=== PATIENT | male | born 1930 | race Caucasian/White ===

== ENCOUNTER 2017-08-10 11:11 | Inpatient (IN) ==
[2017-08-10 12:17] LABS: Basophils % 0.4 % (0.0-0.8); Hematocrit 39.6 VOL% (42.0-52.0); Hemoglobin 13.4 GM/DL (14.0-18.0); Immature Granulocytes % 0.7 %; Immature Granulocytes Absolute 0.03 #; Lymphocytes # 0.8 10*3/uL (1.4-4.0); Lymphocytes % 17.4 % (21.2-54.2); Mean Corpuscular HGB Conc 33.8 GM/DL (32-36); Mean Corpuscular Hemoglobin 32 PG (27-34); Mean Corpuscular Volume 95.9 FL (87-102); Mean Platelet Volume 9.2 FL (9.6-12.0); Monocytes # 0.7 10*3/uL (0.11-0.8); Monocytes % 15.8 % (1.7-12.7); Neutrophils % 65.7 % (38.7-73.9); Platelet Count 252 T/CUMM (130-400); Red Blood Count 4.13 MC/CUMM (3.8-5.5); Red Cell Distribution Width 13.3 % (9.3-17.3); White Blood Count 4.5 T/CUMM (4-12)
[2017-08-10 12:39] LABS: Hypochromasia 2+; Lymphocytes 16 % (20-55); Platelet Estimate Adequate; Segmented Neutrophils 74 % (50-85); Total Cells Counted 100
[2017-08-10 12:45] LABS: Apearance,Urine CLEAR (Clear); Bilirubin,Urine Negative (Negative); Blood, Urine Negative (Negative); Glucose,Urine (UA) Negative (Negative); Ketones,Urine Negative (Negative); Mucus,Urine Occasional /LPF (Occasional); Nitrite,Urine Negative (Negative); Protein,Urine Negative; RBC,Urine 1 /HPF (0-4); Squamous Epithelial Cell,Urine Occasional /HPF (0-10); Urine Color Straw (Yellow); Urine Specific Gravity 1.006 (1.001-1.035); Urine Urobilinogen < 2.0 EU/DL (0.2-1.0)
[2017-08-10 12:46] LABS: Albumin 3.2 G/DL (3.4-5.0); Bilirubin,Total 0.4 MG/DL (0.2-1.0); Calcium 8.3 MG/DL (8.5-10.1); Osmolality,Calculated 271.2 MOS/KG (273-304); Potassium 3.4 MMOL/L (3.5-5.1); Total Protein 6.3 G/DL (6.4-8.3)
[2017-08-10] MEDS ORDERED: ACETAMINOPHEN 325 MG TABLET PO PRN (14:36)
[2017-08-10] MEDS: SODIUM CHLORIDE 0.9% 1,000 ML IV SCH (15:54)
[2017-08-10] MEDS ORDERED: cefTRIAXone 1,000 MG VIAL ONE (16:37)
[2017-08-10] MEDS: cefTRIAXone 1,000 MG in SYRINGE 1 EACH IV SCH (16:41)
[2017-08-10] MEDS ORDERED: TISSUE ADHESIVE 1 EACH APPLICATOR TOP ONE (16:49)
[2017-08-10] MEDS: AZITHROMYCIN INJ 500 MG in SODIUM CHLORIDE 0.9% 250 ML IV SCH (21:13)
[2017-08-10] MEDS: OSELTAMIVIR 30 MG CAPSULE PO SCH (21:13)
[2017-08-11 04:55] LABS: Basophils % 0.9 % (0.0-0.8); Eosinophils % 0.6 % (0.00-10.9); Hematocrit 34.4 VOL% (42.0-52.0); Hemoglobin 11.9 GM/DL (14.0-18.0); Immature Granulocytes % 0.9 %; Immature Granulocytes Absolute 0.03 #; Lymphocytes # 0.7 10*3/uL (1.4-4.0); Lymphocytes % 22.8 % (21.2-54.2); Mean Corpuscular HGB Conc 34.6 GM/DL (32-36); Mean Corpuscular Hemoglobin 33 PG (27-34); Mean Corpuscular Volume 94.8 FL (87-102); Mean Platelet Volume 9.6 FL (9.6-12.0); Monocytes # 0.7 10*3/uL (0.11-0.8); Monocytes % 20.7 % (1.7-12.7); Neutrophils # 1.8 10*3/uL (1.4-7.4); Neutrophils % 54.1 % (38.7-73.9); Platelet Count 229 T/CUMM (130-400); Red Blood Count 3.63 MC/CUMM (3.8-5.5); Red Cell Distribution Width 13.4 % (9.3-17.3); White Blood Count 3.2 T/CUMM (4-12)
[2017-08-11 05:21] LABS: Band Neutrophils 4 % (0-10); Giant Platelets Few; Hypochromasia 1+; Lymphocytes 19 % (20-55); Ovalocytes Slight; Platelet Estimate Adequate; Segmented Neutrophils 61 % (50-85); Total Cells Counted 100
[2017-08-11 05:25] LABS: Calcium 7.5 MG/DL (8.5-10.1); Osmolality,Calculated 277.7 MOS/KG (273-304); Potassium 3.3 MMOL/L (3.5-5.1)
[2017-08-11] MEDS: OSELTAMIVIR 30 MG CAPSULE PO SCH (08:56)
[2017-08-11] MEDS ORDERED: POTASSIUM CHLORIDE 20 MEQ TABLET PO PRN (10:31)
[2017-08-11] MEDS ORDERED: POTASSIUM CHLORIDE 20 MEQ TABLET PO ONE (10:38)
[2017-08-11] MEDS: cefTRIAXone 1,000 MG in SYRINGE 1 EACH IV SCH (13:44)
[2017-08-11] MEDS: SODIUM CHLORIDE 0.9% 1,000 ML IV SCH (13:50)
[2017-08-11] MEDS ORDERED: ALBUTEROL/IPRATROPIUM 3 ML NEB RESP TX PRN (13:56)
[2017-08-11] MEDS: BUDESONIDE/FORMOTEROL 80-4.5 INHALER 6.9 GM INH SCH ×2 (14:36→21:03)
[2017-08-11] MEDS: OSELTAMIVIR 75 MG CAPSULE PO SCH (21:02)
[2017-08-11] MEDS: GABAPENTIN 300 MG CAPSULE PO SCH (21:02)
[2017-08-11] MEDS: TEMAZEPAM 15 MG CAPSULE PO SCH (21:02)
[2017-08-11] MEDS: AZITHROMYCIN INJ 500 MG in SODIUM CHLORIDE 0.9% 250 ML IV SCH (21:03)
[2017-08-12 05:10] LABS: Basophils % 0.7 % (0.0-0.8); Hematocrit 34.3 VOL% (42.0-52.0); Hemoglobin 11.9 GM/DL (14.0-18.0); Immature Granulocytes Absolute 0.03 #; Lymphocytes # 0.9 10*3/uL (1.4-4.0); Lymphocytes % 29.9 % (21.2-54.2); Mean Corpuscular HGB Conc 34.7 GM/DL (32-36); Mean Corpuscular Hemoglobin 33 PG (27-34); Mean Corpuscular Volume 94.8 FL (87-102); Monocytes # 0.6 10*3/uL (0.11-0.8); Monocytes % 18.4 % (1.7-12.7); Neutrophils # 1.5 10*3/uL (1.4-7.4); Platelet Count 234 T/CUMM (130-400); Red Blood Count 3.62 MC/CUMM (3.8-5.5); Red Cell Distribution Width 13.6 % (9.3-17.3)
[2017-08-12 05:59] LABS: Band Neutrophils 3 % (0-10); Eosinophils 1 % (0-10); Hypochromasia 1+; Lymphocytes 30 % (20-55); Platelet Estimate Normal; Segmented Neutrophils 52 % (50-85); Total Cells Counted 100
[2017-08-12 06:09] LABS: Calcium 7.8 MG/DL (8.5-10.1); Magnesium 1.8 MG/DL (1.8-2.4); Osmolality,Calculated 278.5 MOS/KG (273-304); Potassium 3.7 MMOL/L (3.5-5.1)
[2017-08-12] MEDS: OSELTAMIVIR 75 MG CAPSULE PO SCH ×2 (09:23→21:39)
[2017-08-12] MEDS: BUDESONIDE/FORMOTEROL 80-4.5 INHALER 6.9 GM INH SCH ×2 (09:24→21:39)
[2017-08-12] MEDS: cefTRIAXone 1,000 MG in SYRINGE 1 EACH IV SCH (14:28)
[2017-08-12] MEDS: TEMAZEPAM 15 MG CAPSULE PO SCH (21:39)
[2017-08-12] MEDS: GABAPENTIN 300 MG CAPSULE PO SCH (21:39)
[2017-08-12] MEDS: AZITHROMYCIN INJ 500 MG in SODIUM CHLORIDE 0.9% 250 ML IV SCH (21:40)
[2017-08-13] MEDS: BUDESONIDE/FORMOTEROL 80-4.5 INHALER 6.9 GM INH SCH (09:06)
[2017-08-13] MEDS: OSELTAMIVIR 75 MG CAPSULE PO SCH (09:06)
[2017-08-13 12:11] VITALS: BP 109/60
== END 2017-08-13 14:02 | disposition home or self-care (01) | DRG 682 ==
LOC: EDUNIT# → N.ED 11:11 → N.EDINP 14:11 → N.TELEN 17:40
PROVIDERS: ADMIT Internal Medicine; ATTEND Internal Medicine

== ENCOUNTER 2017-08-18 08:53 | Inpatient (IN) ==
[2017-08-18 10:46] LABS: Basophils # 0.1 10*3/uL (0.0-0.2); Basophils % 0.6 % (0.0-0.8); Eosinophils # 0.1 10*3/uL (0.0-0.87); Eosinophils % 0.6 % (0.00-10.9); Hematocrit 37.9 VOL% (42.0-52.0); Hemoglobin 12.9 GM/DL (14.0-18.0); Immature Granulocytes % 1.3 %; Lymphocytes # 0.8 10*3/uL (1.4-4.0); Lymphocytes % 9.9 % (21.2-54.2); Mean Corpuscular Hemoglobin 33 PG (27-34); Mean Corpuscular Volume 95.9 FL (87-102); Mean Platelet Volume 9.4 FL (9.6-12.0); Monocytes # 0.6 10*3/uL (0.11-0.8); Neutrophils # 6.3 10*3/uL (1.4-7.4); Neutrophils % 79.6 % (38.7-73.9); Platelet Count 494 T/CUMM (130-400); Red Blood Count 3.95 MC/CUMM (3.8-5.5); Red Cell Distribution Width 13.8 % (9.3-17.3); White Blood Count 7.9 T/CUMM (4-12)
[2017-08-18] MEDS: DEXTROSE 5% NACL 0.45% 1,000 ML IV SCH (10:52)
[2017-08-18 11:03] LABS: Albumin 3.5 G/DL (3.4-5.0); Bilirubin,Total 0.5 MG/DL (0.2-1.0); Calcium 9.3 MG/DL (8.5-10.1); Osmolality,Calculated 275.8 MOS/KG (273-304); Potassium 4.2 MMOL/L (3.5-5.1); Total Protein 6.8 G/DL (6.4-8.3)
[2017-08-18] MEDS: BUDESONIDE/FORMOTEROL 80-4.5 INHALER 6.9 GM INH SCH ×2 (16:55→21:21)
[2017-08-18] MEDS ORDERED: ALBUTEROL/IPRATROPIUM 3 ML NEB RESP TX PRN (17:06)
[2017-08-18] MEDS ORDERED: FAMOTIDINE 20 MG TABLET PO ONE (18:50)
[2017-08-18] MEDS ORDERED: ALBUTEROL/IPRATROPIUM 3 ML NEB RESP TX ONE (18:52)
[2017-08-18] MEDS: GABAPENTIN 300 MG CAPSULE PO SCH (21:20)
[2017-08-18] MEDS: METOPROLOL TARTRATE 25 MG TABLET PO SCH (21:20)
[2017-08-18] MEDS: hydroCHLOROthiazide 25 MG TABLET PO SCH (21:21)
[2017-08-18] MEDS: TEMAZEPAM 15 MG CAPSULE PO SCH (21:21)
[2017-08-18] MEDS: hydrALAZINE 25 MG TABLET PO SCH (21:21)
[2017-08-19] MEDS: DEXTROSE 5% NACL 0.45% 1,000 ML IV SCH ×3 (04:47→17:12)
[2017-08-19] MEDS ORDERED: LEVOFLOXACIN INJ 500 MG in PREMIX 1 EACH IV ONE (07:00)
[2017-08-19] MEDS: hydrALAZINE 25 MG TABLET PO SCH ×2 (08:56→21:06)
[2017-08-19] MEDS: METOPROLOL TARTRATE 25 MG TABLET PO SCH ×2 (08:56→21:05)
[2017-08-19] MEDS: BUDESONIDE/FORMOTEROL 80-4.5 INHALER 6.9 GM INH SCH ×2 (08:57→21:05)
[2017-08-19] MEDS: hydroCHLOROthiazide 25 MG TABLET PO SCH ×2 (08:57→21:05)
[2017-08-19] MEDS ORDERED: FAMOTIDINE 20 MG TABLET PO ONE (09:00)
[2017-08-19] MEDS ORDERED: FAMOTIDINE 20 MG TABLET ONE (09:02)
[2017-08-19] MEDS ORDERED: NEOMYCIN/POLYMYXIN IRRIG SOLN 1 ML AMP BLADDERIRR ONE (09:54)
[2017-08-19] MEDS ORDERED: fentaNYL 100 MCG/2 ML VIAL ONE (11:07)
[2017-08-19] MEDS ORDERED: ONDANSETRON 4 MG/2 ML VIAL ONE (11:07)
[2017-08-19] MEDS ORDERED: SEVOFLURANE 1 UNIT/15 MINUTE INH ONE (11:07)
[2017-08-19] MEDS ORDERED: PROPOFOL 200 MG/20 ML VIAL IV ONE (11:07)
[2017-08-19] MEDS ORDERED: LACTATED RINGERS 1,000 ML IV ONE (11:08)
[2017-08-19] MEDS ORDERED: HYDROmorphone 2 MG/1 ML VIAL IV PRN (11:16)
[2017-08-19] MEDS ORDERED: ONDANSETRON 4 MG/2 ML VIAL IV PRN (11:16)
[2017-08-19] MEDS: POLYETHYLENE GLYCOL POWDER 17 GM PACK PO SCH (13:16)
[2017-08-19] MEDS: GABAPENTIN 300 MG CAPSULE PO SCH (21:03)
[2017-08-19] MEDS: TEMAZEPAM 15 MG CAPSULE PO SCH (21:03)
[2017-08-20 06:38] LABS: Basophils # 0.1 10*3/uL (0.0-0.2); Basophils % 0.7 % (0.0-0.8); Eosinophils # 0.2 10*3/uL (0.0-0.87); Eosinophils % 2.3 % (0.00-10.9); Hematocrit 30.9 VOL% (42.0-52.0); Immature Granulocytes Absolute 0.07 #; Lymphocytes % 13.9 % (21.2-54.2); Mean Corpuscular Hemoglobin 32 PG (27-34); Mean Corpuscular Volume 97.8 FL (87-102); Mean Platelet Volume 9.5 FL (9.6-12.0); Monocytes # 0.9 10*3/uL (0.11-0.8); Monocytes % 12.7 % (1.7-12.7); Neutrophils # 4.7 10*3/uL (1.4-7.4); Neutrophils % 69.4 % (38.7-73.9); Red Blood Count 3.16 MC/CUMM (3.8-5.5); Red Cell Distribution Width 13.9 % (9.3-17.3); White Blood Count 6.8 T/CUMM (4-12)
[2017-08-20 06:51] LABS: Hemoglobin 10.2 GM/DL (14.0-18.0); Platelet Count 382 T/CUMM (130-400)
[2017-08-20 06:56] LABS: Calcium 8.4 MG/DL (8.5-10.1); Osmolality,Calculated 278.4 MOS/KG (273-304); Potassium 4.2 MMOL/L (3.5-5.1)
[2017-08-20 08:30] VITALS: BP 108/71
[2017-08-20] MEDS: POLYETHYLENE GLYCOL POWDER 17 GM PACK PO SCH (09:24)
[2017-08-20] MEDS: BUDESONIDE/FORMOTEROL 80-4.5 INHALER 6.9 GM INH SCH (09:25)
[2017-08-20] MEDS: hydroCHLOROthiazide 25 MG TABLET PO SCH (09:25)
[2017-08-20] MEDS: METOPROLOL TARTRATE 25 MG TABLET PO SCH (09:25)
[2017-08-20] MEDS: hydrALAZINE 25 MG TABLET PO SCH (09:25)
== END 2017-08-20 10:35 | disposition home or self-care (01) | DRG 669 ==
LOC: N.5E 09:13
PROVIDERS: ADMIT Urology; ATTEND Urology

== ENCOUNTER 2018-02-20 10:59 | Inpatient (IN) ==
[2018-02-20 12:26] LABS: Basophils # 0.1 10*3/uL (0.0-0.2); Basophils % 0.7 % (0.0-0.8); Eosinophils # 0.2 10*3/uL (0.0-0.87); Eosinophils % 2.3 % (0.00-10.9); Hematocrit 41.3 VOL% (42.0-52.0); Hemoglobin 13.9 GM/DL (14.0-18.0); Immature Granulocytes % 0.6 %; Immature Granulocytes Absolute 0.05 #; Lymphocytes % 11.5 % (21.2-54.2); Mean Corpuscular HGB Conc 33.7 GM/DL (32-36); Mean Corpuscular Hemoglobin 32 PG (27-34); Mean Corpuscular Volume 94.5 FL (87-102); Mean Platelet Volume 9.6 FL (9.6-12.0); Monocytes # 0.8 10*3/uL (0.11-0.8); Monocytes % 9.8 % (1.7-12.7); Neutrophils # 6.3 10*3/uL (1.4-7.4); Neutrophils % 75.1 % (38.7-73.9); Platelet Count 340 T/CUMM (130-400); Red Blood Count 4.37 MC/CUMM (3.8-5.5); Red Cell Distribution Width 14.1 % (9.3-17.3); White Blood Count 8.4 T/CUMM (4-12)
[2018-02-20 12:38] LABS: PT Patient Result 10.4 SECS; Partial Thromboplastin Time 28.8 SECS (0-40)
[2018-02-20] MEDS ORDERED: MORPHINE 4 MG/1 ML VIAL IV STA (12:49)
[2018-02-20 13:01] LABS: Calcium 8.6 MG/DL (8.5-10.1); Osmolality,Calculated 276.8 MOS/KG (273-304); Potassium 3.3 MMOL/L (3.5-5.1)
[2018-02-20 13:19] LABS: Apearance,Urine CLOUDY (Clear); Bilirubin,Urine Negative (Negative); Glucose,Urine (UA) 50 mg/dL (Negative); Ketones,Urine Negative (Negative); Nitrite,Urine Negative (Negative); Protein,Urine >=500 MG/DL; Urine Specific Gravity 1.027 (1.001-1.035); Urine Urobilinogen < 2.0 EU/DL (0.2-1.0)
[2018-02-20 13:45] LABS: Blood, Urine Large mg/dL (Negative); Urine Color Red (Yellow)
[2018-02-20 13:46] LABS: RBC,Urine TNTC /HPF (0-4); WBC,Urine 2 /HPF (0-6)
[2018-02-20] MEDS ORDERED: POTASSIUM CHLORIDE 20 MEQ TABLET PO STA (13:52)
[2018-02-20] MEDS ORDERED: MAGNESIUM OXIDE 400 MG TABLET PO ONE (13:53)
[2018-02-20] MEDS ORDERED: PROMETHAZINE 25 MG/1 ML VIAL IM PRN (16:01)
[2018-02-20 16:57] LABS: Hematocrit 41.2 VOL% (42.0-52.0)
[2018-02-20] MEDS: HYDROmorphone 2 MG/1 ML VIAL IV PRN ×3 (17:07→23:57)
[2018-02-20 19:56] LABS: Hematocrit 38.9 VOL% (42.0-52.0); Hemoglobin 13.2 GM/DL (14.0-18.0)
[2018-02-20] MEDS: ATORVASTATIN 20 MG TABLET PO SCH (20:44)
[2018-02-20] MEDS: METOPROLOL TARTRATE 25 MG TABLET PO SCH (20:44)
[2018-02-20] MEDS: GABAPENTIN 300 MG CAPSULE PO SCH (20:45)
[2018-02-20] MEDS: hydroCHLOROthiazide 25 MG TABLET PO SCH (22:30)
[2018-02-20] MEDS: TEMAZEPAM 15 MG CAPSULE PO SCH (22:30)
[2018-02-20] MEDS: BUDESONIDE/FORMOTEROL 80-4.5 INHALER 6.9 GM INH SCH (22:30)
[2018-02-21 00:39] LABS: Hematocrit 38.8 VOL% (42.0-52.0); Hemoglobin 12.9 GM/DL (14.0-18.0)
[2018-02-21] MEDS: SOTALOL 80 MG TABLET PO SCH ×2 (02:04→09:17)
[2018-02-21 05:51] LABS: Basophils # 0.1 10*3/uL (0.0-0.2); Basophils % 0.3 % (0.0-0.8); Hematocrit 37.4 VOL% (42.0-52.0); Hemoglobin 12.9 GM/DL (14.0-18.0); Immature Granulocytes % 2.2 %; Lymphocytes # 0.8 10*3/uL (1.4-4.0); Lymphocytes % 2.1 % (21.2-54.2); Mean Corpuscular HGB Conc 34.5 GM/DL (32-36); Mean Corpuscular Hemoglobin 33 PG (27-34); Mean Corpuscular Volume 94.2 FL (87-102); Mean Platelet Volume 10.1 FL (9.6-12.0); Monocytes # 2.2 10*3/uL (0.11-0.8); Monocytes % 6.1 % (1.7-12.7); Neutrophils # 32.5 10*3/uL (1.4-7.4); Neutrophils % 89.3 % (38.7-73.9); Platelet Count 359 T/CUMM (130-400); Red Blood Count 3.97 MC/CUMM (3.8-5.5); Red Cell Distribution Width 14.6 % (9.3-17.3); White Blood Count 36.4 T/CUMM (4-12)
[2018-02-21 05:53] LABS: Hematocrit 38.4 VOL% (42.0-52.0); Hemoglobin 12.8 GM/DL (14.0-18.0)
[2018-02-21 06:21] LABS: Calcium 8.7 MG/DL (8.5-10.1); Potassium 5.2 MMOL/L (3.5-5.1)
[2018-02-21 08:12] LABS: Hematocrit 37.9 VOL% (42.0-52.0); Hemoglobin 12.7 GM/DL (14.0-18.0)
[2018-02-21] MEDS ORDERED: ASPIRIN EC 81 MG TABLET PO SCH (09:00)
[2018-02-21] MEDS ORDERED: CLOPIDOGREL 75 MG TABLET PO SCH (09:00)
[2018-02-21 09:02] LABS: Basophils # 0.1 10*3/uL (0.0-0.2); Basophils % 0.2 % (0.0-0.8); Hematocrit 38.1 VOL% (42.0-52.0); Hemoglobin 12.6 GM/DL (14.0-18.0); Immature Granulocytes % 2.2 %; Immature Granulocytes Absolute 0.89 #; Lymphocytes # 0.8 10*3/uL (1.4-4.0); Lymphocytes % 2.1 % (21.2-54.2); Mean Corpuscular HGB Conc 33.1 GM/DL (32-36); Mean Corpuscular Hemoglobin 32 PG (27-34); Mean Corpuscular Volume 97.4 FL (87-102); Mean Platelet Volume 10.2 FL (9.6-12.0); Monocytes # 1.9 10*3/uL (0.11-0.8); Monocytes % 4.7 % (1.7-12.7); Neutrophils % 90.8 % (38.7-73.9); Platelet Count 329 T/CUMM (130-400); Red Blood Count 3.91 MC/CUMM (3.8-5.5); Red Cell Distribution Width 14.6 % (9.3-17.3); White Blood Count 39.7 T/CUMM (4-12)
[2018-02-21] MEDS: HYDROmorphone 2 MG/1 ML VIAL IV PRN (09:20)
[2018-02-21 09:24] LABS: Lactic Acid 2.5 MMOL/L (0.4-2.0)
[2018-02-21 09:38] LABS: Troponin I 0.108 NG/ML (0.00-0.045)
[2018-02-21] MEDS: SODIUM CHLORIDE 0.9% 1,000 ML IV SCH ×4 (09:38→21:42)
[2018-02-21 09:54] LABS: Albumin 2.7 G/DL (3.4-5.0); Bilirubin,Total 0.9 MG/DL (0.2-1.0); Calcium 8.5 MG/DL (8.5-10.1); Potassium 5.5 MMOL/L (3.5-5.1); Total Protein 6.6 G/DL (6.4-8.3)
[2018-02-21] MEDS: METOPROLOL TARTRATE 25 MG TABLET PO SCH ×2 (09:55→21:32)
[2018-02-21 10:31] LABS: ABG Base Excess -5.2 MMOL/L (-2.5-2.5); ABG HCO3 20.1 MMOL/L (20-26); ABG Oxygen Saturation 96.3 % (95-100); ABG PCO2 48.9 MM HG (35-48); ABG PH 7.263 (7.35-7.45); ABG PO2 94.6 MM HG (80-95); ABG TCO2 20.1 MMOL/L (23-27)
[2018-02-21] MEDS: hydroCHLOROthiazide 25 MG TABLET PO SCH (10:31)
[2018-02-21] MEDS: MEROPENEM 500 MG in SODIUM CHLORIDE 0.9% 100 ML IV SCH ×2 (10:37→21:38)
[2018-02-21 11:57] LABS: Band Neutrophils 30 % (0-10); Lymphocytes 1 % (20-55); Segmented Neutrophils 66 % (50-85); Total Cells Counted 100
[2018-02-21 11:58] LABS: Microcytosis Slight
[2018-02-21 11:59] LABS: Platelet Estimate Normal; Schistocytes Slight
[2018-02-21] MEDS: ASPIRIN EC 81 MG TABLET PO SCH ×2 (12:16→13:59)
[2018-02-21] MEDS: CETIRIZINE 10 MG TABLET PO SCH ×2 (12:16→13:59)
[2018-02-21] MEDS: CLOPIDOGREL 75 MG TABLET PO SCH ×2 (12:16→13:59)
[2018-02-21] MEDS: ASCORBIC ACID 500 MG TABLET PO SCH ×2 (12:16→13:58)
[2018-02-21 12:23] LABS: Hemoglobin 11.3 GM/DL (14.0-18.0)
[2018-02-21] MEDS ORDERED: NOREPINEPHRINE 4 MG/4 ML VIAL IV ONE (12:35)
[2018-02-21 12:38] LABS: Anisocytosis Slight; Band Neutrophils 21 % (0-10); Lymphocytes 6 % (20-55); Platelet Estimate Normal; Polychromasia Slight; Segmented Neutrophils 65 % (50-85); Stomatocytes Slight; Total Cells Counted 100
[2018-02-21] MEDS ORDERED: SODIUM CHLORIDE 0.9% 1,000 ML IV ONE (12:39)
[2018-02-21] MEDS: NOREPINEPHRINE 8 MG in SODIUM CHLORIDE 0.9% 242 ML IV PRN ×3 (12:45→21:28)
[2018-02-21] MEDS: BUDESONIDE/FORMOTEROL 80-4.5 INHALER 6.9 GM INH SCH ×3 (13:30→21:33)
[2018-02-21 13:32] LABS: Apearance,Urine CLEAR (Clear); Bilirubin,Urine Negative (Negative); Blood, Urine Large mg/dL (Negative); Glucose,Urine (UA) Negative (Negative); Ketones,Urine Negative (Negative); Nitrite,Urine Negative (Negative); Protein,Urine 30 MG/DL; RBC,Urine <1 /HPF (0-4); Urine Color PINK (Yellow); Urine Urobilinogen < 2.0 EU/DL (0.2-1.0)
[2018-02-21 16:35] LABS: Hematocrit 33.5 VOL% (42.0-52.0); Hemoglobin 10.7 GM/DL (14.0-18.0)
[2018-02-21 17:15] LABS: ABG Base Excess -9.2 MMOL/L (-2.5-2.5); ABG HCO3 17.1 MMOL/L (20-26); ABG Oxygen Saturation 97.5 % (95-100); ABG TCO2 22.2 MMOL/L (23-27)
[2018-02-21 17:17] LABS: ABG PCO2 81.3 MM HG (35-48)
[2018-02-21] MEDS ORDERED: SODIUM BICARBONATE 50 MEQ/50 ML SYRINGE IV ONE ×3 (17:20→19:02)
[2018-02-21] MEDS: PROPOFOL 1,000 MG/100 ML BOTTLE IV SCH (17:28)
[2018-02-21] MEDS: CLINDAMYCIN INJ 600 MG in PREMIX 1 EACH IV SCH (17:30)
[2018-02-21] MEDS: methylPREDNISolone SOD SUC 40 MG/1 ML VIAL IV SCH ×2 (17:37→23:57)
[2018-02-21] MEDS ORDERED: PHENYLEPHRINE DRIP 40 MG/250 ML PREMIX IV ONE (18:05)
[2018-02-21] MEDS: PHENYLEPHRINE DRIP 40 MG/250 ML PREMIX IV PRN ×3 (18:12→22:09)
[2018-02-21] MEDS: PANTOPRAZOLE 40 MG VIAL IV SCH (18:32)
[2018-02-21 18:35] LABS: ABG Base Excess -8.8 MMOL/L (-2.5-2.5); ABG HCO3 17.3 MMOL/L (20-26); ABG Oxygen Saturation 99.5 % (95-100); ABG PCO2 60.2 MM HG (35-48); ABG TCO2 19.7 MMOL/L (23-27)
[2018-02-21 18:38] LABS: ABG PH 7.144 (7.35-7.45)
[2018-02-21] MEDS ORDERED: MORPHINE 4 MG/1 ML VIAL IV PRN (19:24)
[2018-02-21] MEDS: ALBUTEROL/IPRATROPIUM 3 ML NEB RESP TX SCH (19:45)
[2018-02-21] MEDS: DOPamine 800 MG/250 ML PREMIX IV PRN (20:00)
[2018-02-21 20:24] LABS: Hematocrit 31.7 VOL% (42.0-52.0)
[2018-02-21] MEDS: TEMAZEPAM 15 MG CAPSULE PO SCH (21:33)
[2018-02-21] MEDS: ATORVASTATIN 20 MG TABLET PO SCH (21:38)
[2018-02-21] MEDS: GABAPENTIN 300 MG CAPSULE PO SCH (21:38)
[2018-02-21] MEDS: MIDAZOLAM 100 MG in SODIUM CHLORIDE 0.9% 80 ML IV PRN (23:41)
[2018-02-22] MEDS: ALBUTEROL/IPRATROPIUM 3 ML NEB RESP TX SCH ×4 (00:46→19:07)
[2018-02-22 00:59] LABS: Hematocrit 32.7 VOL% (42.0-52.0); Hemoglobin 10.6 GM/DL (14.0-18.0)
[2018-02-22] MEDS: CLINDAMYCIN INJ 600 MG in PREMIX 1 EACH IV SCH ×3 (01:13→17:04)
[2018-02-22] MEDS: NOREPINEPHRINE 8 MG in SODIUM CHLORIDE 0.9% 242 ML IV PRN ×2 (01:13→04:09)
[2018-02-22] MEDS: PHENYLEPHRINE DRIP 40 MG/250 ML PREMIX IV PRN ×3 (02:06→05:48)
[2018-02-22] MEDS: SODIUM CHLORIDE 0.9% 1,000 ML IV SCH (02:31)
[2018-02-22 03:27] LABS: ABG Base Excess -9.8 MMOL/L (-2.5-2.5); ABG HCO3 18.3 MMOL/L (20-26); ABG Oxygen Saturation 98.1 % (95-100); ABG PCO2 50.4 MM HG (35-48); ABG PO2 134.9 MM HG (80-95); ABG TCO2 19.9 MMOL/L (23-27); Allen Test Positive; Pt O2 Delivery Device Ventilator
[2018-02-22 03:30] LABS: ABG PH 7.178 (7.35-7.45)
[2018-02-22 04:04] LABS: Osmolality,Calculated 295.1 MOS/KG (273-304); Potassium 5.2 MMOL/L (3.5-5.1)
[2018-02-22 04:07] LABS: Lactic Acid 4.5 MMOL/L (0.4-2.0)
[2018-02-22] MEDS ORDERED: SODIUM BICARBONATE 50 MEQ/50 ML SYRINGE IV ONE (04:07)
[2018-02-22 04:48] LABS: Basophils # 0.1 10*3/uL (0.0-0.2); Basophils % 0.1 % (0.0-0.8); Hematocrit 34.3 VOL% (42.0-52.0); Hemoglobin 10.6 GM/DL (14.0-18.0); Immature Granulocytes % 6.8 %; Immature Granulocytes Absolute 2.96 #; Lymphocytes # 1.4 10*3/uL (1.4-4.0); Lymphocytes % 3.1 % (21.2-54.2); Mean Corpuscular HGB Conc 30.9 GM/DL (32-36); Mean Corpuscular Hemoglobin 33 PG (27-34); Mean Corpuscular Volume 106.2 FL (87-102); Mean Platelet Volume 11.3 FL (9.6-12.0); Monocytes # 3.1 10*3/uL (0.11-0.8); Monocytes % 7.2 % (1.7-12.7); NRBC # 0.05 10*3/uL; Neutrophils # 35.8 10*3/uL (1.4-7.4); Neutrophils % 82.8 % (38.7-73.9); Platelet Count 196 T/CUMM (130-400); Red Blood Count 3.23 MC/CUMM (3.8-5.5); Red Cell Distribution Width 15.1 % (9.3-17.3)
[2018-02-22 04:52] LABS: White Blood Count 43.3 T/CUMM (4-12)
[2018-02-22] MEDS: DOPamine 800 MG/250 ML PREMIX IV PRN (05:23)
[2018-02-22] MEDS: methylPREDNISolone SOD SUC 40 MG/1 ML VIAL IV SCH ×4 (05:48→22:14)
[2018-02-22 06:09] LABS: Band Neutrophils 13 % (0-10); Hypochromasia 1+; Lymphocytes 3 % (20-55); Microcytosis Slight; Myelocytes 2 %; Platelet Estimate Adequate; Segmented Neutrophils 75 % (50-85); Total Cells Counted 100
[2018-02-22] MEDS ORDERED: SODIUM BICARB INJ 100 MEQ in DEXTROSE 5% 900 ML IV SCH (08:00)
[2018-02-22] MEDS: MEROPENEM 500 MG in SODIUM CHLORIDE 0.9% 100 ML IV SCH ×2 (08:51→21:40)
[2018-02-22] MEDS: PANTOPRAZOLE 40 MG VIAL IV SCH (08:59)
[2018-02-22] MEDS: ASCORBIC ACID 500 MG TABLET PO SCH (09:12)
[2018-02-22] MEDS: CETIRIZINE 10 MG TABLET PO SCH (09:13)
[2018-02-22] MEDS ORDERED: LEVOFLOXACIN INJ 750 MG in PREMIX 1 EACH IV SCH (10:00)
[2018-02-22] MEDS: ASPIRIN EC 81 MG TABLET PO SCH ×2 (10:00→14:25)
[2018-02-22] MEDS: METOPROLOL TARTRATE 25 MG TABLET PO SCH ×2 (10:01→11:58)
[2018-02-22] MEDS: BUDESONIDE/FORMOTEROL 80-4.5 INHALER 6.9 GM INH SCH (10:01)
[2018-02-22] MEDS: CLOPIDOGREL 75 MG TABLET PO SCH (10:01)
[2018-02-22] MEDS: SODIUM BICARB INJ 150 MEQ in DEXTROSE 5% 850 ML IV SCH ×2 (10:16→20:00)
[2018-02-22] MEDS: PHENYLEPHRINE INJ 160 MG in SODIUM CHLORIDE 0.9% 234 ML IV PRN ×2 (10:18→21:00)
[2018-02-22] MEDS: NOREPINEPHRINE 16 MG in SODIUM CHLORIDE 0.9% 234 ML IV PRN ×2 (10:18→23:09)
[2018-02-22 12:05] LABS: Albumin 1.9 G/DL (3.4-5.0); Bilirubin,Direct 0.18 MG/DL (0.0-0.20); Bilirubin,Indirect 0.2 MG/DL (0.0-1.0); Bilirubin,Total 0.4 MG/DL (0.2-1.0); Total Protein 4.9 G/DL (6.4-8.3)
[2018-02-22] MEDS ORDERED: GLUCAGON 1 MG VIAL IM PRN (14:21)
[2018-02-22] MEDS ORDERED: DEXTROSE 50% 25 GM/50 ML VIAL IV PRN (14:21)
[2018-02-22] MEDS ORDERED: NOREPINEPHRINE 4 MG/4 ML VIAL IV ONE (16:17)
[2018-02-22] MEDS: INSULIN REGULAR 100 UNIT/ML SUBCUT SCH (18:28)
[2018-02-22] MEDS: GABAPENTIN 300 MG CAPSULE PO SCH (21:40)
[2018-02-22] MEDS: TEMAZEPAM 15 MG CAPSULE PO SCH (21:40)
[2018-02-22] MEDS: ATORVASTATIN 20 MG TABLET PO SCH (21:40)
[2018-02-23] MEDS: INSULIN REGULAR 100 UNIT/ML SUBCUT SCH ×4 (00:42→18:25)
[2018-02-23] MEDS: CLINDAMYCIN INJ 600 MG in PREMIX 1 EACH IV SCH (00:43)
[2018-02-23] MEDS: ALBUTEROL/IPRATROPIUM 3 ML NEB RESP TX SCH ×4 (01:17→19:11)
[2018-02-23] MEDS: DOPamine 800 MG/250 ML PREMIX IV PRN (02:03)
[2018-02-23 04:37] LABS: ABG HCO3 25.3 MMOL/L (20-26); ABG Oxygen Saturation 98.2 % (95-100); ABG PCO2 56.3 MM HG (35-48); Allen Test Positive; Pt O2 Delivery Device Ventilator
[2018-02-23 04:43] LABS: Hematocrit 27.4 VOL% (42.0-52.0); Immature Granulocytes % 2.4 %; Immature Granulocytes Absolute 1.33 #; Lymphocytes # 0.5 10*3/uL (1.4-4.0); Lymphocytes % 0.9 % (21.2-54.2); Mean Corpuscular HGB Conc 32.8 GM/DL (32-36); Mean Corpuscular Hemoglobin 33 PG (27-34); Mean Corpuscular Volume 100.7 FL (87-102); Mean Platelet Volume 11.3 FL (9.6-12.0); Monocytes # 1.9 10*3/uL (0.11-0.8); Monocytes % 3.4 % (1.7-12.7); NRBC # 0.02 10*3/uL; Neutrophils # 50.9 10*3/uL (1.4-7.4); Neutrophils % 93.3 % (38.7-73.9); Platelet Count 110 T/CUMM (130-400); Red Blood Count 2.72 MC/CUMM (3.8-5.5); Red Cell Distribution Width 16.1 % (9.3-17.3)
[2018-02-23 04:52] LABS: White Blood Count 54.7 T/CUMM (4-12)
[2018-02-23 05:07] LABS: Calcium 6.4 MG/DL (8.5-10.1); Osmolality,Calculated 298.3 MOS/KG (273-304); Potassium 5.5 MMOL/L (3.5-5.1)
[2018-02-23 05:11] LABS: Prealbumin 8.2 MG/DL (20-40)
[2018-02-23 05:23] LABS: Band Neutrophils 16 % (0-10); Lymphocytes 1 % (20-55); Myelocytes 1 %; Segmented Neutrophils 78 % (50-85); Total Cells Counted 100
[2018-02-23 05:24] LABS: Hypochromasia 1+; Microcytosis Slight; Platelet Estimate Decreased
[2018-02-23] MEDS: MIDAZOLAM 100 MG in SODIUM CHLORIDE 0.9% 80 ML IV PRN (05:25)
[2018-02-23] MEDS: NOREPINEPHRINE 16 MG in SODIUM CHLORIDE 0.9% 234 ML IV PRN ×3 (05:28→18:39)
[2018-02-23] MEDS: SODIUM BICARB INJ 150 MEQ in DEXTROSE 5% 850 ML IV SCH ×2 (05:52→16:13)
[2018-02-23] MEDS: methylPREDNISolone SOD SUC 40 MG/1 ML VIAL IV SCH ×4 (05:52→22:34)
[2018-02-23] MEDS ORDERED: PIPERACILLIN/TAZOBACTAM 2,250 MG in SODIUM CHLORIDE 0.9% 100 ML IV SCH (07:30)
[2018-02-23 07:47] LABS: Allen Test Positive; Pt O2 Delivery Device Ventilator
[2018-02-23 07:48] LABS: ABG HCO3 22.7 MMOL/L (20-26); ABG Oxygen Saturation 96.5 % (95-100); ABG PCO2 52.6 MM HG (35-48); ABG PH 7.285 (7.35-7.45); ABG PO2 84.9 MM HG (80-95); ABG TCO2 23.5 MMOL/L (23-27)
[2018-02-23] MEDS: PHENYLEPHRINE INJ 160 MG in SODIUM CHLORIDE 0.9% 234 ML IV PRN ×2 (08:35→14:57)
[2018-02-23] MEDS ORDERED: MAGNESIUM SULF RIDER 4 GM in PREMIX 1 EACH IV PRN (08:41)
[2018-02-23] MEDS ORDERED: MAGNESIUM SULF RIDER 2 GM in PREMIX 1 EACH IV PRN (08:41)
[2018-02-23] MEDS: MEROPENEM 500 MG in SODIUM CHLORIDE 0.9% 100 ML IV SCH (08:54)
[2018-02-23] MEDS: PANTOPRAZOLE 40 MG VIAL IV SCH (09:00)
[2018-02-23] MEDS: ASCORBIC ACID 500 MG TABLET PO SCH (09:02)
[2018-02-23] MEDS: ASPIRIN EC 81 MG TABLET PO SCH (09:02)
[2018-02-23] MEDS: CLOPIDOGREL 75 MG TABLET PO SCH (09:02)
[2018-02-23] MEDS: CETIRIZINE 10 MG TABLET PO SCH (09:02)
[2018-02-23] MEDS: MEROPENEM 1,000 MG in SODIUM CHLORIDE 0.9% 100 ML IV SCH ×2 (09:12→21:35)
[2018-02-23] MEDS: BELLADONNA/OPIUM 30 MG SUPP RECTAL SCH ×2 (12:08→21:35)
[2018-02-23] MEDS ORDERED: SODIUM POLYSTYRENE SULFATE 15 GM/60 ML BOTTLE PO PRN ×2 (13:49→14:30)
[2018-02-23] MEDS ORDERED: cefTRIAXone 1,000 MG in SYRINGE 1 EACH IV SCH (15:00)
[2018-02-23] MEDS: HYDROmorphone 2 MG/1 ML VIAL IV PRN (16:10)
[2018-02-23] MEDS: GABAPENTIN 300 MG CAPSULE PO SCH (21:35)
[2018-02-23] MEDS: TEMAZEPAM 15 MG CAPSULE PO SCH (21:36)
[2018-02-24] MEDS: INSULIN REGULAR 100 UNIT/ML SUBCUT SCH ×4 (00:30→18:19)
[2018-02-24] MEDS: ALBUTEROL/IPRATROPIUM 3 ML NEB RESP TX SCH ×4 (01:10→19:53)
[2018-02-24] MEDS: NOREPINEPHRINE 16 MG in SODIUM CHLORIDE 0.9% 234 ML IV PRN ×3 (01:15→21:30)
[2018-02-24] MEDS: SODIUM BICARB INJ 150 MEQ in DEXTROSE 5% 850 ML IV SCH ×2 (02:00→14:14)
[2018-02-24 04:29] LABS: Pt O2 Delivery Device Ventilator
[2018-02-24 04:30] LABS: ABG Base Excess 5.1 MMOL/L (-2.5-2.5); ABG HCO3 29.9 MMOL/L (20-26); ABG Oxygen Saturation 97.8 % (95-100); ABG PCO2 45.7 MM HG (35-48); ABG PH 7.433 (7.35-7.45); ABG PO2 116.8 MM HG (80-95); ABG TCO2 31.3 MMOL/L (23-27)
[2018-02-24 05:03] LABS: Hematocrit 22.6 VOL% (42.0-52.0); Hemoglobin 7.7 GM/DL (14.0-18.0); Immature Granulocytes % 3.8 %; Immature Granulocytes Absolute 1.81 #; Lymphocytes # 0.2 10*3/uL (1.4-4.0); Lymphocytes % 0.5 % (21.2-54.2); Mean Corpuscular HGB Conc 34.1 GM/DL (32-36); Mean Corpuscular Hemoglobin 33 PG (27-34); Mean Corpuscular Volume 95.8 FL (87-102); Mean Platelet Volume 11.2 FL (9.6-12.0); Monocytes # 1.5 10*3/uL (0.11-0.8); Monocytes % 3.2 % (1.7-12.7); NRBC # 0.09 10*3/uL; Neutrophils # 43.9 10*3/uL (1.4-7.4); Neutrophils % 92.5 % (38.7-73.9); Red Blood Count 2.36 MC/CUMM (3.8-5.5); Red Cell Distribution Width 16.7 % (9.3-17.3)
[2018-02-24] MEDS: methylPREDNISolone SOD SUC 40 MG/1 ML VIAL IV SCH ×4 (05:14→22:07)
[2018-02-24 05:20] LABS: Alanine Aminotransferase 183 U/L (16-61); Albumin 1.4 G/DL (3.4-5.0); Alkaline Phosphatase 98 U/L (45-117); Aspartate Amino Transferase 122 U/L (0-37); Blood Urea Nitrogen 78 MG/DL (7-18); Calcium 6.1 MG/DL (8.5-10.1); Glucose 170 MG/DL (74-106); Osmolality,Calculated 307.3 MOS/KG (273-304); Platelet Count 65 T/CUMM (130-400); Potassium 4.3 MMOL/L (3.5-5.1); Sodium 141 MMOL/L (136-145); Total Protein 4.7 G/DL (6.4-8.3); White Blood Count 47.4 T/CUMM (4-12)
[2018-02-24 05:25] LABS: Band Neutrophils 3 % (0-10); Lymphocytes 1 % (20-55); Myelocytes 1 %; Nucleated Red Blood Cells 1 (0-5); Segmented Neutrophils 94 % (50-85); Total Cells Counted 100
[2018-02-24 05:26] LABS: Hypochromasia 1+; Microcytosis Slight; Ovalocytes Slight; Platelet Estimate Decreased
[2018-02-24 05:28] LABS: Lactic Acid 2.6 MMOL/L (0.4-2.0)
[2018-02-24] MEDS ORDERED: SODIUM CHLORIDE 0.9% 1,000 ML IV PRN (08:38)
[2018-02-24] MEDS ORDERED: LANSOPRAZOLE ODT 30 MG TABLET PO SCH (09:00)
[2018-02-24] MEDS: CLOPIDOGREL 75 MG TABLET PO SCH (09:02)
[2018-02-24] MEDS: MEROPENEM 1,000 MG in SODIUM CHLORIDE 0.9% 100 ML IV SCH ×2 (09:02→21:55)
[2018-02-24] MEDS: ASPIRIN EC 81 MG TABLET PO SCH (09:02)
[2018-02-24] MEDS: ASCORBIC ACID 500 MG TABLET PO SCH (09:02)
[2018-02-24] MEDS: BELLADONNA/OPIUM 30 MG SUPP RECTAL SCH ×2 (09:02→21:55)
[2018-02-24] MEDS: CETIRIZINE 10 MG TABLET PO SCH (09:02)
[2018-02-24] MEDS: HYDROmorphone 2 MG/1 ML VIAL IV PRN ×2 (13:50→20:25)
[2018-02-24] MEDS: GABAPENTIN 300 MG CAPSULE PO SCH (21:55)
[2018-02-24] MEDS: TEMAZEPAM 15 MG CAPSULE PO SCH (21:56)
[2018-02-25] MEDS: ALBUTEROL/IPRATROPIUM 3 ML NEB RESP TX SCH ×4 (00:28→20:20)
[2018-02-25] MEDS: INSULIN REGULAR 100 UNIT/ML SUBCUT SCH ×4 (00:33→18:35)
[2018-02-25 03:19] LABS: Basophils # 0.2 10*3/uL (0.0-0.2); Basophils % 0.4 % (0.0-0.8); Hematocrit 27.5 VOL% (42.0-52.0); Hemoglobin 9.4 GM/DL (14.0-18.0); Immature Granulocytes Absolute 2.04 #; Lymphocytes # 0.2 10*3/uL (1.4-4.0); Lymphocytes % 0.5 % (21.2-54.2); Mean Corpuscular HGB Conc 34.2 GM/DL (32-36); Mean Corpuscular Hemoglobin 31 PG (27-34); Mean Platelet Volume 11.4 FL (9.6-12.0); Monocytes # 1.7 10*3/uL (0.11-0.8); Monocytes % 4.2 % (1.7-12.7); NRBC # 0.13 10*3/uL; Neutrophils # 36.9 10*3/uL (1.4-7.4); Neutrophils % 89.9 % (38.7-73.9); Red Blood Count 2.99 MC/CUMM (3.8-5.5); Red Cell Distribution Width 16.7 % (9.3-17.3)
[2018-02-25 03:26] LABS: White Blood Count 41.1 T/CUMM (4-12)
[2018-02-25 03:27] LABS: Platelet Count 45 T/CUMM (130-400)
[2018-02-25 03:39] LABS: ABG Base Excess 6.8 MMOL/L (-2.5-2.5); ABG HCO3 32.6 MMOL/L (20-26); ABG Oxygen Saturation 97.8 % (95-100); ABG PCO2 52.3 MM HG (35-48); ABG PH 7.413 (7.35-7.45); ABG PO2 116.5 MM HG (80-95); ABG TCO2 34.2 MMOL/L (23-27)
[2018-02-25 03:52] LABS: Albumin 1.5 G/DL (3.4-5.0); Bilirubin,Total 0.4 MG/DL (0.2-1.0); Calcium 6.7 MG/DL (8.5-10.1); Potassium 3.9 MMOL/L (3.5-5.1); Total Protein 4.9 G/DL (6.4-8.3)
[2018-02-25 04:40] LABS: Calcium 6.8 MG/DL (8.5-10.1); Osmolality,Calculated 313.1 MOS/KG (273-304); Potassium 3.9 MMOL/L (3.5-5.1)
[2018-02-25 05:38] LABS: Band Neutrophils 8 % (0-10); Hypochromasia 1+; Lymphocytes 1 % (20-55); Microcytosis Slight; Myelocytes 1 %; Nucleated Red Blood Cells 1 (0-5); Platelet Estimate Decreased; Segmented Neutrophils 87 % (50-85); Total Cells Counted 100
[2018-02-25] MEDS: methylPREDNISolone SOD SUC 40 MG/1 ML VIAL IV SCH ×2 (05:56→18:26)
[2018-02-25] MEDS ORDERED: FUROSEMIDE 40 MG TABLET PO SCH (08:00)
[2018-02-25] MEDS: FUROSEMIDE 40 MG/4 ML VIAL IV SCH ×2 (08:51→17:37)
[2018-02-25] MEDS: FAMOTIDINE 20 MG/2 ML VIAL IV SCH (08:52)
[2018-02-25] MEDS: ASCORBIC ACID 500 MG TABLET PO SCH (08:52)
[2018-02-25] MEDS: BELLADONNA/OPIUM 30 MG SUPP RECTAL SCH ×2 (08:52→09:58)
[2018-02-25] MEDS: MEROPENEM 1,000 MG in SODIUM CHLORIDE 0.9% 100 ML IV SCH ×2 (08:53→21:30)
[2018-02-25] MEDS ORDERED: BELLADONNA/OPIUM 30 MG SUPP RECTAL PRN (09:59)
[2018-02-25] MEDS ORDERED: FUROSEMIDE 40 MG/4 ML VIAL IV SCH (17:00)
[2018-02-25] MEDS: HYDROmorphone 2 MG/1 ML VIAL IV PRN (18:26)
[2018-02-25] MEDS: NOREPINEPHRINE 16 MG in SODIUM CHLORIDE 0.9% 234 ML IV PRN (19:30)
[2018-02-25] MEDS: TEMAZEPAM 15 MG CAPSULE PO SCH (21:30)
[2018-02-25] MEDS: GABAPENTIN 300 MG CAPSULE PO SCH (21:30)
[2018-02-26] MEDS: INSULIN REGULAR 100 UNIT/ML SUBCUT SCH ×4 (00:07→18:14)
[2018-02-26] MEDS: HYDROmorphone 2 MG/1 ML VIAL IV PRN ×2 (00:08→04:50)
[2018-02-26] MEDS: ALBUTEROL/IPRATROPIUM 3 ML NEB RESP TX SCH ×4 (00:48→19:10)
[2018-02-26 03:29] LABS: ABG Base Excess 10.3 MMOL/L (-2.5-2.5); ABG Oxygen Saturation 95.2 % (95-100); ABG PCO2 53.9 MM HG (35-48); ABG PH 7.437 (7.35-7.45); ABG PO2 77.3 MM HG (80-95); ABG TCO2 32.6 MMOL/L (23-27); Pt O2 Delivery Device Ventilator
[2018-02-26 04:05] LABS: Basophils # 0.1 10*3/uL (0.0-0.2); Basophils % 0.4 % (0.0-0.8); Hematocrit 28.7 VOL% (42.0-52.0); Hemoglobin 9.8 GM/DL (14.0-18.0); Immature Granulocytes Absolute 0.34 #; Lymphocytes # 0.1 10*3/uL (1.4-4.0); Lymphocytes % 0.4 % (21.2-54.2); Mean Corpuscular HGB Conc 34.1 GM/DL (32-36); Mean Corpuscular Hemoglobin 32 PG (27-34); Mean Corpuscular Volume 92.3 FL (87-102); Mean Platelet Volume 12.4 FL (9.6-12.0); Monocytes # 2.4 10*3/uL (0.11-0.8); Monocytes % 7.1 % (1.7-12.7); NRBC # 0.14 10*3/uL; Neutrophils # 30.9 10*3/uL (1.4-7.4); Neutrophils % 91.1 % (38.7-73.9); Platelet Count 47 T/CUMM (130-400); Red Blood Count 3.11 MC/CUMM (3.8-5.5); Red Cell Distribution Width 16.7 % (9.3-17.3); White Blood Count 33.9 T/CUMM (4-12)
[2018-02-26 04:14] LABS: PT Patient Result 10.5 SECS; Partial Thromboplastin Time 30.1 SECS (0-40)
[2018-02-26 04:26] LABS: Calcium 6.8 MG/DL (8.5-10.1); Osmolality,Calculated 325.6 MOS/KG (273-304); Potassium 3.6 MMOL/L (3.5-5.1)
[2018-02-26 04:29] LABS: Alanine Aminotransferase 103 U/L (16-61); Albumin 1.6 G/DL (3.4-5.0); Alkaline Phosphatase 153 U/L (45-117); Aspartate Amino Transferase 34 U/L (0-37); Blood Urea Nitrogen 104 MG/DL (7-18); Calcium 6.9 MG/DL (8.5-10.1); Glucose 154 MG/DL (74-106); Osmolality,Calculated 323.7 MOS/KG (273-304); Potassium 3.5 MMOL/L (3.5-5.1); Prealbumin 9.2 MG/DL (20-40); Sodium 145 MMOL/L (136-145); Total Protein 5.1 G/DL (6.4-8.3)
[2018-02-26 04:36] LABS: Lactic Acid 2.2 MMOL/L (0.4-2.0)
[2018-02-26 04:47] LABS: Band Neutrophils 10 % (0-10); Hypochromasia 1+; Lymphocytes 1 % (20-55); Ovalocytes Slight; Platelet Estimate Decreased; Segmented Neutrophils 87 % (50-85); Total Cells Counted 100
[2018-02-26 04:48] LABS: Microcytosis Slight
[2018-02-26] MEDS: methylPREDNISolone SOD SUC 40 MG/1 ML VIAL IV SCH ×2 (05:49→19:12)
[2018-02-26] MEDS: FUROSEMIDE 40 MG/4 ML VIAL IV SCH (09:18)
[2018-02-26] MEDS: FAMOTIDINE 20 MG/2 ML VIAL IV SCH (09:19)
[2018-02-26] MEDS: ASCORBIC ACID 500 MG TABLET PO SCH (09:19)
[2018-02-26] MEDS: CLOPIDOGREL 75 MG TABLET PO SCH (09:19)
[2018-02-26] MEDS: ASPIRIN CHEW 81 MG TABLET PO SCH (09:20)
[2018-02-26] MEDS: MEROPENEM 1,000 MG in SODIUM CHLORIDE 0.9% 100 ML IV SCH ×2 (10:59→20:55)
[2018-02-26] MEDS: MICAFUNGIN 100 MG in SODIUM CHLORIDE 0.9% 100 ML IV SCH (11:49)
[2018-02-26] MEDS: PROPOFOL 1,000 MG/100 ML BOTTLE IV SCH (18:13)
[2018-02-26] MEDS: TEMAZEPAM 15 MG CAPSULE PO SCH (20:54)
[2018-02-26] MEDS: GABAPENTIN 300 MG CAPSULE PO SCH (20:54)
[2018-02-27] MEDS: INSULIN REGULAR 100 UNIT/ML SUBCUT SCH ×5 (00:04→23:59)
[2018-02-27] MEDS: ALBUTEROL/IPRATROPIUM 3 ML NEB RESP TX SCH ×4 (00:45→19:40)
[2018-02-27 04:32] LABS: ABG Base Excess 11.8 MMOL/L (-2.5-2.5); ABG HCO3 36.8 MMOL/L (20-26); ABG Oxygen Saturation 93.9 % (95-100); ABG PCO2 49.6 MM HG (35-48); ABG PH 7.488 (7.35-7.45); ABG PO2 74.7 MM HG (80-95); ABG TCO2 38.3 MMOL/L (23-27); Allen Test Positive; Pt O2 Delivery Device Ventilator
[2018-02-27] MEDS: methylPREDNISolone SOD SUC 40 MG/1 ML VIAL IV SCH ×2 (05:01→17:25)
[2018-02-27 05:22] LABS: Basophils # 0.1 10*3/uL (0.0-0.2); Basophils % 0.4 % (0.0-0.8); Hematocrit 31.3 VOL% (42.0-52.0); Hemoglobin 10.5 GM/DL (14.0-18.0); Immature Granulocytes % 2.3 %; Immature Granulocytes Absolute 0.75 #; Lymphocytes # 0.3 10*3/uL (1.4-4.0); Mean Corpuscular HGB Conc 33.5 GM/DL (32-36); Mean Corpuscular Hemoglobin 31 PG (27-34); Mean Corpuscular Volume 92.6 FL (87-102); Mean Platelet Volume 11.7 FL (9.6-12.0); Monocytes # 2.7 10*3/uL (0.11-0.8); Monocytes % 8.2 % (1.7-12.7); NRBC # 0.08 10*3/uL; Neutrophils # 29.2 10*3/uL (1.4-7.4); Neutrophils % 88.1 % (38.7-73.9); Platelet Count 93 T/CUMM (130-400); Red Blood Count 3.38 MC/CUMM (3.8-5.5); Red Cell Distribution Width 16.6 % (9.3-17.3); White Blood Count 33.2 T/CUMM (4-12)
[2018-02-27 05:26] LABS: Calcium 7.8 MG/DL (8.5-10.1); Osmolality,Calculated 333.4 MOS/KG (273-304); Potassium 3.6 MMOL/L (3.5-5.1)
[2018-02-27 06:26] LABS: Band Neutrophils 4 % (0-10); Lymphocytes 1 % (20-55); Nucleated Red Blood Cells 1 (0-5); Segmented Neutrophils 92 % (50-85); Total Cells Counted 100
[2018-02-27 06:27] LABS: Anisocytosis 1+; Hypochromasia Slight; Polychromasia Slight
[2018-02-27 06:28] LABS: Platelet Estimate Decreased
[2018-02-27] MEDS: MEROPENEM 1,000 MG in SODIUM CHLORIDE 0.9% 100 ML IV SCH ×2 (08:28→20:21)
[2018-02-27] MEDS: CLOPIDOGREL 75 MG TABLET PO SCH (08:29)
[2018-02-27] MEDS: FAMOTIDINE 20 MG/2 ML VIAL IV SCH (08:29)
[2018-02-27] MEDS: FUROSEMIDE 40 MG/4 ML VIAL IV SCH (08:29)
[2018-02-27] MEDS: ASPIRIN CHEW 81 MG TABLET PO SCH (08:30)
[2018-02-27] MEDS: ASCORBIC ACID 500 MG TABLET PO SCH (08:30)
[2018-02-27] MEDS: MICAFUNGIN 100 MG in SODIUM CHLORIDE 0.9% 100 ML IV SCH (12:13)
[2018-02-27] MEDS: NOREPINEPHRINE 16 MG in SODIUM CHLORIDE 0.9% 234 ML IV PRN (16:35)
[2018-02-27] MEDS: TEMAZEPAM 15 MG CAPSULE PO SCH (20:22)
[2018-02-27] MEDS: GABAPENTIN 300 MG CAPSULE PO SCH (20:22)
[2018-02-27] MEDS: PROPOFOL 1,000 MG/100 ML BOTTLE IV SCH (22:12)
[2018-02-28] MEDS: ALBUTEROL/IPRATROPIUM 3 ML NEB RESP TX SCH ×4 (00:44→19:06)
[2018-02-28] MEDS: PROPOFOL 1,000 MG/100 ML BOTTLE IV SCH ×3 (02:55→23:46)
[2018-02-28 03:59] LABS: ABG Base Excess 14.5 MMOL/L (-2.5-2.5); ABG HCO3 40.3 MMOL/L (20-26); ABG Oxygen Saturation 96.4 % (95-100); ABG PCO2 56.7 MM HG (35-48); ABG PO2 94.2 MM HG (80-95); ABG TCO2 42.1 MMOL/L (23-27); Allen Test Positive; Pt O2 Delivery Device Ventilator
[2018-02-28 04:30] LABS: Basophils # 0.1 10*3/uL (0.0-0.2); Basophils % 0.3 % (0.0-0.8); Hematocrit 31.6 VOL% (42.0-52.0); Hemoglobin 10.6 GM/DL (14.0-18.0); Immature Granulocytes % 1.2 %; Immature Granulocytes Absolute 0.39 #; Lymphocytes # 0.4 10*3/uL (1.4-4.0); Lymphocytes % 1.2 % (21.2-54.2); Mean Corpuscular HGB Conc 33.5 GM/DL (32-36); Mean Corpuscular Hemoglobin 31 PG (27-34); Mean Corpuscular Volume 92.1 FL (87-102); Monocytes # 2.7 10*3/uL (0.11-0.8); Monocytes % 8.4 % (1.7-12.7); NRBC # 0.04 10*3/uL; Neutrophils # 28.6 10*3/uL (1.4-7.4); Neutrophils % 88.9 % (38.7-73.9); Platelet Count 182 T/CUMM (130-400); Red Blood Count 3.43 MC/CUMM (3.8-5.5); White Blood Count 32.2 T/CUMM (4-12)
[2018-02-28 04:57] LABS: Potassium 3.5 MMOL/L (3.5-5.1)
[2018-02-28 05:24] LABS: Band Neutrophils 4 % (0-10); Lymphocytes 2 % (20-55); Nucleated Red Blood Cells 1 (0-5); Platelet Estimate Normal; Segmented Neutrophils 91 % (50-85); Total Cells Counted 100
[2018-02-28] MEDS: INSULIN REGULAR 100 UNIT/ML SUBCUT SCH ×4 (05:32→23:38)
[2018-02-28] MEDS: methylPREDNISolone SOD SUC 40 MG/1 ML VIAL IV SCH ×2 (05:39→18:17)
[2018-02-28] MEDS: FUROSEMIDE 40 MG/4 ML VIAL IV SCH (08:21)
[2018-02-28] MEDS: DEXTROSE 5% 1,000 ML IV SCH (08:21)
[2018-02-28] MEDS: CLOPIDOGREL 75 MG TABLET PO SCH (08:22)
[2018-02-28] MEDS: ASCORBIC ACID 500 MG TABLET PO SCH (08:22)
[2018-02-28] MEDS: FAMOTIDINE 20 MG/2 ML VIAL IV SCH (08:22)
[2018-02-28] MEDS: MEROPENEM 1,000 MG in SODIUM CHLORIDE 0.9% 100 ML IV SCH ×2 (08:22→20:05)
[2018-02-28] MEDS: ASPIRIN CHEW 81 MG TABLET PO SCH (08:23)
[2018-02-28] MEDS: MICAFUNGIN 100 MG in SODIUM CHLORIDE 0.9% 100 ML IV SCH (12:31)
[2018-02-28] MEDS: HYDROmorphone 2 MG/1 ML VIAL IV PRN (15:13)
[2018-02-28] MEDS: TEMAZEPAM 15 MG CAPSULE PO SCH (20:08)
[2018-02-28] MEDS: GABAPENTIN 300 MG CAPSULE PO SCH (20:08)
[2018-03-01] MEDS: ALBUTEROL/IPRATROPIUM 3 ML NEB RESP TX SCH ×4 (00:32→19:17)
[2018-03-01] MEDS: HYDROmorphone 2 MG/1 ML VIAL IV PRN (02:14)
[2018-03-01] MEDS: DEXTROSE 5% 1,000 ML IV SCH ×2 (03:51→23:43)
[2018-03-01 04:22] LABS: ABG Base Excess 12.5 MMOL/L (-2.5-2.5); ABG HCO3 40.2 MMOL/L (20-26); ABG Oxygen Saturation 89.4 % (95-100); ABG PO2 68.3 MM HG (80-95); ABG TCO2 42.4 MMOL/L (23-27); Allen Test Positive; Pt O2 Delivery Device Ventilator
[2018-03-01 04:25] LABS: ABG PCO2 69.6 MM HG (35-48)
[2018-03-01 05:14] LABS: Basophils # 0.1 10*3/uL (0.0-0.2); Basophils % 0.2 % (0.0-0.8); Hematocrit 31.7 VOL% (42.0-52.0); Hemoglobin 10.2 GM/DL (14.0-18.0); Immature Granulocytes % 1.3 %; Immature Granulocytes Absolute 0.34 #; Lymphocytes # 0.5 10*3/uL (1.4-4.0); Lymphocytes % 1.7 % (21.2-54.2); Mean Corpuscular HGB Conc 32.2 GM/DL (32-36); Mean Corpuscular Hemoglobin 31 PG (27-34); Mean Corpuscular Volume 96.1 FL (87-102); Mean Platelet Volume 11.8 FL (9.6-12.0); Monocytes # 1.5 10*3/uL (0.11-0.8); Monocytes % 5.6 % (1.7-12.7); Neutrophils # 24.2 10*3/uL (1.4-7.4); Neutrophils % 91.2 % (38.7-73.9); Platelet Count 270 T/CUMM (130-400); Red Cell Distribution Width 16.9 % (9.3-17.3); White Blood Count 26.5 T/CUMM (4-12)
[2018-03-01 05:20] LABS: Allen Test Positive; Pt O2 Delivery Device Ventilator
[2018-03-01 05:21] LABS: ABG Base Excess 12.3 MMOL/L (-2.5-2.5); ABG HCO3 38.4 MMOL/L (20-26); ABG PCO2 57.9 MM HG (35-48); ABG PO2 69.9 MM HG (80-95); ABG TCO2 40.2 MMOL/L (23-27)
[2018-03-01] MEDS: methylPREDNISolone SOD SUC 40 MG/1 ML VIAL IV SCH ×2 (05:24→18:40)
[2018-03-01] MEDS: INSULIN REGULAR 100 UNIT/ML SUBCUT SCH ×4 (05:24→23:25)
[2018-03-01 05:35] LABS: Calcium 7.4 MG/DL (8.5-10.1); Potassium 3.5 MMOL/L (3.5-5.1)
[2018-03-01 06:01] LABS: Band Neutrophils 2 % (0-10); Hypochromasia 1+; Lymphocytes 1 % (20-55); Platelet Estimate Adequate; Segmented Neutrophils 93 % (50-85); Total Cells Counted 100
[2018-03-01] MEDS: MEROPENEM 1,000 MG in SODIUM CHLORIDE 0.9% 100 ML IV SCH ×2 (11:15→20:43)
[2018-03-01] MEDS: ASCORBIC ACID 500 MG TABLET PO SCH (11:16)
[2018-03-01] MEDS: CLOPIDOGREL 75 MG TABLET PO SCH (11:16)
[2018-03-01] MEDS: FAMOTIDINE 20 MG/2 ML VIAL IV SCH (11:16)
[2018-03-01] MEDS: ASPIRIN CHEW 81 MG TABLET PO SCH (11:16)
[2018-03-01] MEDS: MICAFUNGIN 100 MG in SODIUM CHLORIDE 0.9% 100 ML IV SCH (14:02)
[2018-03-01] MEDS: PROPOFOL 1,000 MG/100 ML BOTTLE IV SCH (20:29)
[2018-03-01] MEDS: GABAPENTIN 300 MG CAPSULE PO SCH (20:42)
[2018-03-01] MEDS: TEMAZEPAM 15 MG CAPSULE PO SCH (20:42)
[2018-03-02] MEDS: ALBUTEROL/IPRATROPIUM 3 ML NEB RESP TX SCH ×4 (01:29→18:58)
[2018-03-02] MEDS: NOREPINEPHRINE 16 MG in SODIUM CHLORIDE 0.9% 234 ML IV PRN (02:49)
[2018-03-02 03:42] LABS: ABG Base Excess 9.9 MMOL/L (-2.5-2.5); ABG HCO3 33.6 MMOL/L (20-26); ABG Oxygen Saturation 98.2 % (95-100); ABG PCO2 50.9 MM HG (35-48); ABG PH 7.453 (7.35-7.45); ABG TCO2 31.1 MMOL/L (23-27)
[2018-03-02] MEDS: INSULIN REGULAR 100 UNIT/ML SUBCUT SCH ×4 (05:18→23:44)
[2018-03-02] MEDS: methylPREDNISolone SOD SUC 40 MG/1 ML VIAL IV SCH ×2 (05:18→18:18)
[2018-03-02 05:27] LABS: Basophils # 0.1 10*3/uL (0.0-0.2); Basophils % 0.3 % (0.0-0.8); Hematocrit 32.2 VOL% (42.0-52.0); Hemoglobin 10.8 GM/DL (14.0-18.0); Immature Granulocytes Absolute 0.22 #; Lymphocytes # 0.3 10*3/uL (1.4-4.0); Lymphocytes % 1.3 % (21.2-54.2); Mean Corpuscular HGB Conc 33.5 GM/DL (32-36); Mean Corpuscular Hemoglobin 31 PG (27-34); Mean Corpuscular Volume 92.8 FL (87-102); Mean Platelet Volume 11.9 FL (9.6-12.0); Monocytes % 4.4 % (1.7-12.7); Platelet Count 416 T/CUMM (130-400); Red Blood Count 3.47 MC/CUMM (3.8-5.5); Red Cell Distribution Width 16.8 % (9.3-17.3); White Blood Count 22.5 T/CUMM (4-12)
[2018-03-02 05:37] LABS: Calcium 8.3 MG/DL (8.5-10.1); Osmolality,Calculated 337.7 MOS/KG (273-304); Potassium 3.8 MMOL/L (3.5-5.1)
[2018-03-02 05:56] LABS: Giant Platelets Few; Hypochromasia 1+; Lymphocytes 1 % (20-55); Platelet Estimate Adequate; Segmented Neutrophils 97 % (50-85); Total Cells Counted 100
[2018-03-02] MEDS: CLOPIDOGREL 75 MG TABLET PO SCH (08:34)
[2018-03-02] MEDS: FAMOTIDINE 20 MG/2 ML VIAL IV SCH (08:34)
[2018-03-02] MEDS: ASCORBIC ACID 500 MG TABLET PO SCH (08:34)
[2018-03-02] MEDS: ASPIRIN CHEW 81 MG TABLET PO SCH (08:34)
[2018-03-02] MEDS: MEROPENEM 1,000 MG in SODIUM CHLORIDE 0.9% 100 ML IV SCH ×2 (08:35→20:19)
[2018-03-02] MEDS: MICAFUNGIN 100 MG in SODIUM CHLORIDE 0.9% 100 ML IV SCH (12:25)
[2018-03-02] MEDS: PROPOFOL 1,000 MG/100 ML BOTTLE IV SCH (18:02)
[2018-03-02] MEDS: GABAPENTIN 300 MG CAPSULE PO SCH (20:21)
[2018-03-02] MEDS: TEMAZEPAM 15 MG CAPSULE PO SCH (20:21)
[2018-03-02] MEDS: DEXTROSE 5% 1,000 ML IV SCH (20:27)
[2018-03-03] MEDS: ALBUTEROL/IPRATROPIUM 3 ML NEB RESP TX SCH ×4 (00:43→19:29)
[2018-03-03] MEDS: PROPOFOL 1,000 MG/100 ML BOTTLE IV SCH ×2 (00:58→16:24)
[2018-03-03 03:34] LABS: ABG HCO3 33.8 MMOL/L (20-26); ABG Oxygen Saturation 98.4 % (95-100); ABG PH 7.451 (7.35-7.45); ABG TCO2 32.4 MMOL/L (23-27)
[2018-03-03 04:42] LABS: Basophils % 0.1 % (0.0-0.8); Hematocrit 27.5 VOL% (42.0-52.0); Hemoglobin 9.3 GM/DL (14.0-18.0); Immature Granulocytes % 1.1 %; Immature Granulocytes Absolute 0.21 #; Lymphocytes # 0.3 10*3/uL (1.4-4.0); Lymphocytes % 1.5 % (21.2-54.2); Mean Corpuscular HGB Conc 33.8 GM/DL (32-36); Mean Corpuscular Hemoglobin 32 PG (27-34); Mean Corpuscular Volume 93.5 FL (87-102); Mean Platelet Volume 11.5 FL (9.6-12.0); Monocytes # 0.8 10*3/uL (0.11-0.8); Monocytes % 4.2 % (1.7-12.7); Neutrophils # 17.9 10*3/uL (1.4-7.4); Neutrophils % 93.1 % (38.7-73.9); Platelet Count 382 T/CUMM (130-400); Red Blood Count 2.94 MC/CUMM (3.8-5.5); Red Cell Distribution Width 16.4 % (9.3-17.3); White Blood Count 19.3 T/CUMM (4-12)
[2018-03-03 04:58] LABS: Calcium 8.4 MG/DL (8.5-10.1); Osmolality,Calculated 329.3 MOS/KG (273-304); Potassium 3.8 MMOL/L (3.5-5.1)
[2018-03-03] MEDS: methylPREDNISolone SOD SUC 40 MG/1 ML VIAL IV SCH ×2 (05:31→18:15)
[2018-03-03] MEDS: INSULIN REGULAR 100 UNIT/ML SUBCUT SCH ×3 (05:31→18:23)
[2018-03-03 08:05] LABS: Band Neutrophils 1 % (0-10); Segmented Neutrophils 98 % (50-85); Total Cells Counted 100
[2018-03-03 08:06] LABS: Hypochromasia 1+; Microcytosis Slight; Ovalocytes Slight; Platelet Estimate Adequate
[2018-03-03] MEDS: ASPIRIN CHEW 81 MG TABLET PO SCH (09:02)
[2018-03-03] MEDS: ASCORBIC ACID 500 MG TABLET PO SCH (09:02)
[2018-03-03] MEDS: CLOPIDOGREL 75 MG TABLET PO SCH (09:02)
[2018-03-03] MEDS: MEROPENEM 1,000 MG in SODIUM CHLORIDE 0.9% 100 ML IV SCH ×2 (09:02→20:35)
[2018-03-03] MEDS: FAMOTIDINE 20 MG/2 ML VIAL IV SCH (09:03)
[2018-03-03 09:27] LABS: ABG Base Excess 9.5 MMOL/L (-2.5-2.5); ABG HCO3 33.3 MMOL/L (20-26); ABG Oxygen Saturation 99.1 % (95-100); ABG PCO2 49.1 MM HG (35-48); ABG PH 7.457 (7.35-7.45); ABG TCO2 31.8 MMOL/L (23-27)
[2018-03-03 10:59] LABS: ABG Base Excess 9.9 MMOL/L (-2.5-2.5); ABG HCO3 33.6 MMOL/L (20-26); ABG Oxygen Saturation 96.2 % (95-100); ABG PCO2 50.2 MM HG (35-48); ABG PH 7.454 (7.35-7.45); ABG PO2 79.4 MM HG (80-95); ABG TCO2 32.4 MMOL/L (23-27)
[2018-03-03] MEDS: MICAFUNGIN 100 MG in SODIUM CHLORIDE 0.9% 100 ML IV SCH (11:42)
[2018-03-03] MEDS: DEXTROSE 5% 1,000 ML IV SCH (15:53)
[2018-03-03] MEDS: TEMAZEPAM 15 MG CAPSULE PO SCH (20:40)
[2018-03-03] MEDS: GABAPENTIN 300 MG CAPSULE PO SCH (20:40)
[2018-03-04] MEDS: INSULIN REGULAR 100 UNIT/ML SUBCUT SCH ×4 (00:14→18:17)
[2018-03-04] MEDS: ALBUTEROL/IPRATROPIUM 3 ML NEB RESP TX SCH ×4 (01:27→19:50)
[2018-03-04 04:32] LABS: ABG Base Excess 9.3 MMOL/L (-2.5-2.5); ABG Oxygen Saturation 92.1 % (95-100); ABG PCO2 48.7 MM HG (35-48); ABG PO2 64.9 MM HG (80-95); ABG TCO2 30.9 MMOL/L (23-27)
[2018-03-04 05:18] LABS: Basophils % 0.1 % (0.0-0.8); Hematocrit 26.2 VOL% (42.0-52.0); Hemoglobin 8.6 GM/DL (14.0-18.0); Immature Granulocytes % 2.6 %; Immature Granulocytes Absolute 0.48 #; Lymphocytes # 0.3 10*3/uL (1.4-4.0); Lymphocytes % 1.6 % (21.2-54.2); Mean Corpuscular HGB Conc 32.8 GM/DL (32-36); Mean Corpuscular Hemoglobin 31 PG (27-34); Mean Corpuscular Volume 94.9 FL (87-102); Mean Platelet Volume 11.9 FL (9.6-12.0); Monocytes # 0.9 10*3/uL (0.11-0.8); Monocytes % 4.8 % (1.7-12.7); Neutrophils # 16.6 10*3/uL (1.4-7.4); Neutrophils % 90.9 % (38.7-73.9); Platelet Count 394 T/CUMM (130-400); Red Blood Count 2.76 MC/CUMM (3.8-5.5); Red Cell Distribution Width 16.2 % (9.3-17.3); White Blood Count 18.3 T/CUMM (4-12)
[2018-03-04 05:28] LABS: Calcium 8.4 MG/DL (8.5-10.1); Osmolality,Calculated 325.1 MOS/KG (273-304); Potassium 3.7 MMOL/L (3.5-5.1)
[2018-03-04 05:33] LABS: Calcium 7.9 MG/DL (8.5-10.1); Potassium 3.7 MMOL/L (3.5-5.1); Prealbumin 27.2 MG/DL (20-40)
[2018-03-04 05:48] LABS: Band Neutrophils 2 % (0-10); Giant Platelets Few; Hypochromasia 1+; Lymphocytes 2 % (20-55); Microcytosis Slight; Platelet Estimate Adequate; Segmented Neutrophils 95 % (50-85); Total Cells Counted 100
[2018-03-04] MEDS: methylPREDNISolone SOD SUC 40 MG/1 ML VIAL IV SCH ×2 (06:20→07:33)
[2018-03-04] MEDS: CLOPIDOGREL 75 MG TABLET PO SCH (08:52)
[2018-03-04] MEDS: ASPIRIN CHEW 81 MG TABLET PO SCH (08:52)
[2018-03-04] MEDS: FAMOTIDINE 20 MG/2 ML VIAL IV SCH (08:53)
[2018-03-04] MEDS: MEROPENEM 1,000 MG in SODIUM CHLORIDE 0.9% 100 ML IV SCH ×2 (08:53→20:23)
[2018-03-04] MEDS: ASCORBIC ACID 500 MG TABLET PO SCH (08:53)
[2018-03-04] MEDS: MICAFUNGIN 100 MG in SODIUM CHLORIDE 0.9% 100 ML IV SCH (11:43)
[2018-03-04] MEDS: DEXTROSE 5% 1,000 ML IV SCH (11:43)
[2018-03-04] MEDS: TEMAZEPAM 15 MG CAPSULE PO SCH (20:23)
[2018-03-04] MEDS: GABAPENTIN 300 MG CAPSULE PO SCH (20:23)
[2018-03-05] MEDS: INSULIN REGULAR 100 UNIT/ML SUBCUT SCH ×5 (00:06→23:57)
[2018-03-05] MEDS: ALBUTEROL/IPRATROPIUM 3 ML NEB RESP TX SCH ×4 (00:20→19:37)
[2018-03-05 04:31] LABS: Basophils % 0.1 % (0.0-0.8); Eosinophils # 0.1 10*3/uL (0.0-0.87); Eosinophils % 0.6 % (0.00-10.9); Hematocrit 24.6 VOL% (42.0-52.0); Hemoglobin 8.2 GM/DL (14.0-18.0); Immature Granulocytes % 2.6 %; Lymphocytes # 0.5 10*3/uL (1.4-4.0); Lymphocytes % 2.3 % (21.2-54.2); Mean Corpuscular HGB Conc 33.3 GM/DL (32-36); Mean Corpuscular Hemoglobin 31 PG (27-34); Mean Corpuscular Volume 93.2 FL (87-102); Mean Platelet Volume 11.9 FL (9.6-12.0); Monocytes # 1.3 10*3/uL (0.11-0.8); Monocytes % 6.9 % (1.7-12.7); Neutrophils # 17.1 10*3/uL (1.4-7.4); Neutrophils % 87.5 % (38.7-73.9); Platelet Count 426 T/CUMM (130-400); Red Blood Count 2.64 MC/CUMM (3.8-5.5); Red Cell Distribution Width 16.1 % (9.3-17.3); White Blood Count 19.5 T/CUMM (4-12)
[2018-03-05 04:48] LABS: Allen Test Positive; Pt O2 Delivery Device Venturi Mask
[2018-03-05 04:49] LABS: ABG HCO3 32.7 MMOL/L (20-26); ABG Oxygen Saturation 93.5 % (95-100); ABG PCO2 56.1 MM HG (35-48); ABG PH 7.406 (7.35-7.45); ABG PO2 71.4 MM HG (80-95); ABG TCO2 32.6 MMOL/L (23-27)
[2018-03-05 04:52] LABS: Calcium 8.3 MG/DL (8.5-10.1); Osmolality,Calculated 315.3 MOS/KG (273-304); Potassium 3.7 MMOL/L (3.5-5.1)
[2018-03-05 05:49] LABS: Hypochromasia 1+; Microcytosis Slight; Platelet Estimate Adequate; Segmented Neutrophils 96 % (50-85); Total Cells Counted 100
[2018-03-05] MEDS ORDERED: MIDAZOLAM 10 MG/2 ML VIAL ONE (06:06)
[2018-03-05] MEDS ORDERED: PROPOFOL 1,000 MG/100 ML BOTTLE IV ONE (06:10)
[2018-03-05] MEDS: PROPOFOL 1,000 MG/100 ML BOTTLE IV SCH ×2 (06:15→23:00)
[2018-03-05] MEDS ORDERED: LIDOCAINE 2% 20 ML VIAL RESP TX ONE (06:30)
[2018-03-05] MEDS ORDERED: LIDOCAINE 1% 20 ML VIAL MISC INJ ONE (06:30)
[2018-03-05] MEDS ORDERED: NOREPINEPHRINE 4 MG/4 ML VIAL IV ONE (06:32)
[2018-03-05] MEDS: NOREPINEPHRINE 8 MG in SODIUM CHLORIDE 0.9% 242 ML IV PRN (06:35)
[2018-03-05] MEDS ORDERED: SODIUM CHLORIDE 0.9% 1,000 ML IV ONE (06:48)
[2018-03-05] MEDS: DEXTROSE 5% 1,000 ML IV SCH ×2 (07:30→23:04)
[2018-03-05 08:19] LABS: ABG Base Excess 6.5 MMOL/L (-2.5-2.5); ABG HCO3 30.4 MMOL/L (20-26); ABG Oxygen Saturation 99.9 % (95-100); ABG PH 7.364 (7.35-7.45); ABG TCO2 31.1 MMOL/L (23-27)
[2018-03-05] MEDS: ASCORBIC ACID 500 MG TABLET PO SCH (09:00)
[2018-03-05] MEDS ORDERED: PANTOPRAZOLE 40 MG VIAL IV SCH (09:00)
[2018-03-05] MEDS: ASPIRIN CHEW 81 MG TABLET PO SCH (09:00)
[2018-03-05] MEDS: methylPREDNISolone SOD SUC 40 MG/1 ML VIAL IV SCH (09:20)
[2018-03-05] MEDS: MEROPENEM 1,000 MG in SODIUM CHLORIDE 0.9% 100 ML IV SCH ×2 (09:30→20:25)
[2018-03-05] MEDS: MICAFUNGIN 100 MG in SODIUM CHLORIDE 0.9% 100 ML IV SCH (15:45)
[2018-03-05] MEDS ORDERED: DEXTROSE 10% 1,000 ML IV PRN (17:00)
[2018-03-05] MEDS ORDERED: TRACE ELEMENTS (5) 1 ML, MULTIVITAMIN INJ 10 ML in AMINO ACIDS/DEXT/LYTES 5-15% 2,000 ML IV SCH (17:00)
[2018-03-05] MEDS ORDERED: INSULIN REGULAR 100 UNIT/ML SUBCUT SCH (18:27)
[2018-03-05] MEDS: PANTOPRAZOLE 40 MG VIAL IV SCH (20:26)
[2018-03-05] MEDS: GABAPENTIN 300 MG CAPSULE PO SCH (22:43)
[2018-03-05] MEDS: TEMAZEPAM 15 MG CAPSULE PO SCH (22:43)
[2018-03-06] MEDS: ALBUTEROL/IPRATROPIUM 3 ML NEB RESP TX SCH ×4 (01:23→18:52)
[2018-03-06 03:29] LABS: ABG HCO3 30.9 MMOL/L (20-26); ABG Oxygen Saturation 98.2 % (95-100); ABG PCO2 44.6 MM HG (35-48); ABG PH 7.459 (7.35-7.45); ABG TCO2 29.3 MMOL/L (23-27); Allen Test Positive; Pt O2 Delivery Device Ventilator
[2018-03-06 03:50] LABS: Basophils % 0.1 % (0.0-0.8); Eosinophils # 0.1 10*3/uL (0.0-0.87); Eosinophils % 0.7 % (0.00-10.9); Hematocrit 25.3 VOL% (42.0-52.0); Hemoglobin 8.5 GM/DL (14.0-18.0); Immature Granulocytes % 1.7 %; Lymphocytes # 0.4 10*3/uL (1.4-4.0); Mean Corpuscular HGB Conc 33.6 GM/DL (32-36); Mean Corpuscular Hemoglobin 30 PG (27-34); Mean Corpuscular Volume 89.1 FL (87-102); Mean Platelet Volume 12.1 FL (9.6-12.0); Monocytes # 0.9 10*3/uL (0.11-0.8); Monocytes % 5.3 % (1.7-12.7); NRBC # 0.02 10*3/uL; Neutrophils # 16.1 10*3/uL (1.4-7.4); Neutrophils % 90.2 % (38.7-73.9); Platelet Count 333 T/CUMM (130-400); Red Blood Count 2.84 MC/CUMM (3.8-5.5); Red Cell Distribution Width 16.9 % (9.3-17.3); White Blood Count 17.9 T/CUMM (4-12)
[2018-03-06 04:28] LABS: Calcium 7.9 MG/DL (8.5-10.1); Osmolality,Calculated 309.3 MOS/KG (273-304); Potassium 4.4 MMOL/L (3.5-5.1)
[2018-03-06 04:36] LABS: Band Neutrophils 2 % (0-10); Lymphocytes 1 % (20-55); Nucleated Red Blood Cells 1 (0-5); Segmented Neutrophils 94 % (50-85); Total Cells Counted 100
[2018-03-06 04:37] LABS: Hypochromasia Slight
[2018-03-06 04:38] LABS: Microcytosis 1+; Platelet Estimate Normal
[2018-03-06] MEDS: HYDROmorphone 2 MG/1 ML VIAL IV PRN ×2 (05:39→12:50)
[2018-03-06] MEDS: INSULIN REGULAR 100 UNIT/ML SUBCUT SCH ×4 (05:46→23:21)
[2018-03-06] MEDS: NOREPINEPHRINE 8 MG in SODIUM CHLORIDE 0.9% 242 ML IV PRN ×2 (06:06→14:30)
[2018-03-06] MEDS: methylPREDNISolone SOD SUC 40 MG/1 ML VIAL IV SCH (08:35)
[2018-03-06] MEDS: PANTOPRAZOLE 40 MG VIAL IV SCH ×2 (08:40→22:12)
[2018-03-06] MEDS: ASCORBIC ACID 500 MG TABLET PO SCH (08:45)
[2018-03-06] MEDS: MEROPENEM 1,000 MG in SODIUM CHLORIDE 0.9% 100 ML IV SCH ×2 (08:45→21:48)
[2018-03-06] MEDS ORDERED: fentaNYL 100 MCG/2 ML VIAL IV ONE (11:00)
[2018-03-06 11:33] LABS: Amorphous Crystals,Urine Occasional /HPF (Few); Apearance,Urine CLOUDY (Clear); Bacteria,Urine Occasional /HPF (Few); Bilirubin,Urine Negative (Negative); Blood, Urine Moderate mg/dL (Negative); Glucose,Urine (UA) Negative (Negative); Ketones,Urine Negative (Negative); Mucus,Urine Occasional /LPF (Occasional); Nitrite,Urine Negative (Negative); Protein,Urine 30 MG/DL; RBC,Urine 85 /HPF (0-4); Squamous Epithelial Cell,Urine Occasional /HPF (0-10); Urine Color Yellow (Yellow); Urine Specific Gravity 1.014 (1.001-1.035); Urine Urobilinogen < 2.0 EU/DL (0.2-1.0); WBC,Urine 114 /HPF (0-6)
[2018-03-06 11:36] LABS: Basophils % 0.2 % (0.0-0.8); Eosinophils # 0.1 10*3/uL (0.0-0.87); Eosinophils % 0.3 % (0.00-10.9); Hematocrit 27.6 VOL% (42.0-52.0); Hemoglobin 9.1 GM/DL (14.0-18.0); Immature Granulocytes % 2.2 %; Immature Granulocytes Absolute 0.54 #; Lymphocytes # 0.2 10*3/uL (1.4-4.0); Lymphocytes % 0.7 % (21.2-54.2); Mean Corpuscular Hemoglobin 29 PG (27-34); Mean Corpuscular Volume 89.3 FL (87-102); Mean Platelet Volume 12.2 FL (9.6-12.0); Monocytes # 0.9 10*3/uL (0.11-0.8); Monocytes % 3.6 % (1.7-12.7); Neutrophils # 23.3 10*3/uL (1.4-7.4); Platelet Count 324 T/CUMM (130-400); Red Blood Count 3.09 MC/CUMM (3.8-5.5); Red Cell Distribution Width 18.5 % (9.3-17.3)
[2018-03-06] MEDS: MICAFUNGIN 100 MG in SODIUM CHLORIDE 0.9% 100 ML IV SCH (11:50)
[2018-03-06 12:25] LABS: Band Neutrophils 4 % (0-10); Lymphocytes 1 % (20-55); Segmented Neutrophils 94 % (50-85); Total Cells Counted 100
[2018-03-06 12:26] LABS: Hypochromasia 1+; Microcytosis 1+; Platelet Estimate Normal
[2018-03-06] MEDS: PROPOFOL 1,000 MG/100 ML BOTTLE IV SCH (14:15)
[2018-03-06] MEDS ORDERED: fentaNYL INJ 1,250 MCG in SODIUM CHLORIDE 0.9% 225 ML IV PRN (16:57)
[2018-03-06] MEDS ORDERED: MULTIVITAMIN IV SCH (17:00)
[2018-03-06] MEDS ORDERED: TRACE ELEMENTS IV SCH (17:00)
[2018-03-06] MEDS ORDERED: [UNRECOGNIZED DRUG - OTHER] IV SCH (17:00)
[2018-03-06] MEDS: DEXTROSE 5% 1,000 ML IV SCH (18:25)
[2018-03-06] MEDS: NOREPINEPHRINE 16 MG in SODIUM CHLORIDE 0.9% 234 ML IV PRN (19:54)
[2018-03-06] MEDS ORDERED: PHENYLEPHRINE DRIP 40 MG/250 ML PREMIX IV ONE (20:15)
[2018-03-06] MEDS ORDERED: SODIUM CHLORIDE 0.9% 500 ML IV ONE ×2 (20:16→22:58)
[2018-03-06 20:29] LABS: Hematocrit 21.8 VOL% (42.0-52.0)
[2018-03-06 20:31] LABS: Hemoglobin 7.3 GM/DL (14.0-18.0)
[2018-03-06] MEDS ORDERED: PHENYLEPHRINE DRIP 40 MG/250 ML PREMIX IV PRN (21:21)
[2018-03-06] MEDS: MIDAZOLAM 100 MG in SODIUM CHLORIDE 0.9% 80 ML IV PRN (21:32)
[2018-03-06] MEDS ORDERED: VECURONIUM 100 MG in SODIUM CHLORIDE 0.9% 100 ML IV SCH (22:00)
[2018-03-06] MEDS: TEMAZEPAM 15 MG CAPSULE PO SCH (22:10)
[2018-03-06] MEDS: GABAPENTIN 300 MG CAPSULE PO SCH (22:10)
[2018-03-06 23:18] LABS: Fibrinogen Quant Value 376 MG% (200-400); INR 1.1; PT Patient Result 11.1 SECS; Partial Thromboplastin Time 29.8 SECS (0-40)
[2018-03-07] MEDS: MORPHINE 4 MG/1 ML VIAL IV PRN ×11 (00:33→08:08)
[2018-03-07 07:08] VITALS: BP 47/32
== END 2018-03-07 08:30 | disposition expired | DRG 981 ==
LOC: N.ED 10:59 → N.EDINP 13:56 → SUATTDRO 13:56 → N.5E 14:27 → N.ICU 02-21 08:48
PROVIDERS: ADMIT Urology; ATTEND Internal Medicine Cardiovascular Disease
PROC: IRGDHTC (2018-03-01 10:05)